=== PATIENT | male | born 2000 | race Hispanic/Latino ===

== ENCOUNTER 2022-02-20 22:53 | Inpatient (IN) | payer SELFPAY ==
[~2022-02-20 22:53] MED LIST: Iopamidol 370 76% 100 ML VIAL ONE
[2022-02-20 23:38] LABS: #Lymphocytes 2.2 thou/uL (1.20-3.40); #Monocytes 1.2 thou/uL (0.11-0.59); #Neutrophils 7.6 thou/uL (1.40-6.50); %Basophils 0.3 % (0.0-1.0); %Eosinophils 0.2 % (0.0-10.0); %Lymphocytes 19.6 % (21.0-51.0); %Monocytes 10.6 % (0.0-10.0); %Neutrophils 69.3 % (42.0-75.0); Hemoglobin 12.3 g/dL (14.0-18.0); Mean Corpuscular HGB CONC 34.4 g/dL (32.0-36.0); Mean Corpuscular Hemoglobin 30.9 pg (27.0-31.0); Mean Corpuscular Volume 89.8 fL (78.0-98.0); Mean Platelet Volume 6.8 fL (7.4-10.4); Platelet Count 343 thou/uL (130-400); RBC Distribution Width 12.1 % (11.5-14.5)
[2022-02-20 23:58] LABS: ALT (SGPT) 102 U/L (8-55); AST (SGOT) 45 U/L (5-34); Albumin 3.7 g/dL (3.5-5.0); Alkaline Phosphatase 67 U/L (40-110); Anion Gap 12 mmol/L (10-20); BUN (Urea Nitrogen) 10 mg/dL (8.9-20.6); Bilirubin, Total 0.8 mg/dL (0.2-1.2); Calc. Creatinine Clearance 0 mL/min (70-130); Calcium 8.9 mg/dL (7.8-10.44); Carbon Dioxide 24 mmol/L (22-29); Chloride 102 mmol/L (98-107); Globulin 4.4 g/dL (2.4-3.5); Glucose 112 mg/dL (70-105); Potassium 3.9 mmol/L (3.5-5.1); Protein, Total 8.1 g/dL (6.0-8.3); Sodium 134 mmol/L (136-145)
[2022-02-21] MEDS ORDERED: Enoxaparin Sodium 80 MG/0.8 ML SYRINGE ONE (01:32)
[2022-02-21 03:07] VITALS: BMI 25.9
[2022-02-21] MEDS ORDERED: Acetaminophen 325 MG TAB PO PRN (05:45)
[2022-02-21] MEDS ORDERED: Acetaminophen 650 MG Suppository PR PRN (05:45)
[2022-02-21] MEDS ORDERED: Ondansetron ODT 4 MG TAB PO PRN (05:45)
[2022-02-21] MEDS ORDERED: Ondansetron PF 4 MG/2 ML Vial IVP PRN (05:45)
[2022-02-21] MEDS ORDERED: Heparin 10,000 UNITS/ 10 ML VIAL SLOW IVP SCH (16:30)
[2022-02-21 16:37] LABS: Hemoglobin 11.9 g/dL (14.0-18.0); Platelet Count 306 thou/uL (130-400)
[2022-02-21] MEDS: Heparin 25,000 units/D5W 500 ML IVPB SCH (18:02)
[2022-02-21] MEDS ORDERED: Apixaban 5 MG TAB PO SCH (21:00)
[2022-02-22 01:33] LABS: INR-International Normal Ratio 1.2; Prothrombin Time 14.9 sec (12.0-14.7)
[2022-02-22 01:34] LABS: PTT 95.9 sec (22.9-36.1)
[2022-02-22 08:16] LABS: #Lymphocytes 2.8 thou/uL (1.20-3.40); #Monocytes 0.8 thou/uL (0.11-0.59); #Neutrophils 3.7 thou/uL (1.40-6.50); %Basophils 0.6 % (0.0-1.0); %Eosinophils 0.3 % (0.0-10.0); %Lymphocytes 37.7 % (21.0-51.0); %Monocytes 11.3 % (0.0-10.0); Hemoglobin 12.6 g/dL (14.0-18.0); Mean Corpuscular HGB CONC 33.6 g/dL (32.0-36.0); Mean Corpuscular Hemoglobin 30.7 pg (27.0-31.0); Mean Corpuscular Volume 91.4 fL (78.0-98.0); Mean Platelet Volume 7.1 fL (7.4-10.4); Platelet Count 316 thou/uL (130-400); RBC Distribution Width 12.3 % (11.5-14.5); Red Blood Cell (RBC) Count 4.09 mill/uL (4.70-6.10); White Blood Cell (WBC) Count 7.4 thou/uL (4.8-10.8)
[2022-02-22 08:34] LABS: Anion Gap 12 mmol/L (10-20); BUN (Urea Nitrogen) 7 mg/dL (8.9-20.6); Calc. Creatinine Clearance 179 mL/min (70-130); Calcium 9.6 mg/dL (7.8-10.44); Carbon Dioxide 26 mmol/L (22-29); Chloride 100 mmol/L (98-107); Glucose 93 mg/dL (70-105); Potassium 4.1 mmol/L (3.5-5.1); Sodium 134 mmol/L (136-145)
[2022-02-22 08:49] LABS: INR-International Normal Ratio 1.1; Prothrombin Time 14.1 sec (12.0-14.7)
[2022-02-22] MEDS: Heparin 25,000 units/D5W 500 ML IVPB SCH (09:46)
[2022-02-22] MEDS ORDERED: PROPOFOL 40 ML ONE (12:04)
[2022-02-22] MEDS ORDERED: Lidocaine 1% PF 5 ML VIAL ONE (12:09)
[2022-02-22] MEDS ORDERED: PROPOFOL 200 MG/20 ML VIAL ONE (12:09)
[2022-02-22 16:40] LABS: INR-International Normal Ratio 1.1; Prothrombin Time 13.8 sec (12.0-14.7)
[2022-02-22 16:41] LABS: D-Dimer Test 1.64 *mcg/mL (0.27-0.43); PTT 80.6 sec (22.9-36.1)
[2022-02-23] MEDS: Heparin 25,000 units/D5W 500 ML IVPB SCH (02:20)
[2022-02-23 05:55] LABS: Anion Gap 14 mmol/L (10-20); BUN (Urea Nitrogen) 9 mg/dL (8.9-20.6); Calc. Creatinine Clearance 168 mL/min (70-130); Calcium 8.8 mg/dL (7.8-10.44); Carbon Dioxide 26 mmol/L (22-29); Chloride 101 mmol/L (98-107); Glucose 92 mg/dL (70-105); Potassium 3.9 mmol/L (3.5-5.1); Sodium 137 mmol/L (136-145)
[2022-02-23 06:06] LABS: Band 1 % (5-11); Eosinophils 1 % (0-10); Lymphocytes 59 % (21-51); MDiff Complete? YES; Mean Corpuscular HGB CONC 33.1 g/dL (32.0-36.0); Mean Corpuscular Hemoglobin 30.3 pg (27.0-31.0); Mean Corpuscular Volume 91.5 fL (78.0-98.0); Mean Platelet Volume 6.4 fL (7.4-10.4); Monocytes 2 % (0-10); Neutrophil 37 % (42-75); Platelet Count 317 thou/uL (130-400); Platelet Morphology Comment Appears Adequate; RBC Distribution Width 12.2 % (11.5-14.5); RBC Morphology Normal; Red Blood Cell (RBC) Count 3.95 mill/uL (4.70-6.10); White Blood Cell (WBC) Count 5.3 thou/uL (4.8-10.8)
[2022-02-23] MEDS ORDERED: Communication Order-Pharmacy FS SCH (11:20)
[2022-02-23 11:43] LABS: Platelet Count 339 thou/uL (130-400)
[2022-02-23 18:51] LABS: Hemoglobin 12.7 g/dL (14.0-18.0); Platelet Count 346 thou/uL (130-400)
[2022-02-23] MEDS ORDERED: Heparin 10,000 UNITS/ 10 ML VIAL SLOW IVP SCH (20:30)
[2022-02-23] MEDS ORDERED: Heparin 25,000 units/D5W 500 ML IV SCH (20:30)
[2022-02-23] MEDS ORDERED: Apixaban 5 MG TAB PO SCH ×2 (21:00)
[2022-02-23] MEDS: Apixaban 5 MG TAB PO SCH (21:36)
[2022-02-24] MEDS: Apixaban 5 MG TAB PO SCH (09:59)
[2022-02-24 11:37] VITALS: BP 118/74; TEMP 97.7
[2022-02-25 10:53] LABS: Protein C Activity 88 % (78-152)
[2022-02-26 13:42] LABS: Cardiolipin IgA Ab 6.6 APL-U/mL (<14 Negative); Cardiolipin IgG Ab 3.2 GPL-U/mL (<10 Negative); EliA APS New Method **** NEW METHOD ****
[2022-03-02] MEDS ORDERED: Apixaban 5 MG TAB PO SCH ×2 (21:00)
== END 2022-02-24 15:00 | disposition home or self-care (01) | DRG 176 ==
LOC: ERS 22:53 → OBSVTOIN 02-21 01:18 → NEURO 02-21 01:18
PROVIDERS: ADMIT Student in an Organized Health Care Education/Training Program; ATTEND Internal Medicine
PROC: B24BZZ4 Ultrasonography of Heart with Aorta, Transesophageal (ICD-10-PCS; principal; 2022-02-22)
DX: I26.99 Other pulmonary embolism without acute cor pulmonale (principal); E87.1 Hypo-osmolality and hyponatremia; J90 Pleural effusion, not elsewhere classified; R74.01 Elevation of levels of liver transaminase levels; Z20.822 Contact with and (suspected) exposure to COVID-19; Z88.1 Allergy status to other antibiotic agents; Z79.899 Other long term (current) drug therapy
CPT/HCPCS: 36415; 71275; 76705; 80048; 80053; 83090; 85014; 85018; 85025; 85049; 85240; 85300; 85303; 85305; 85307; 85379; 85598; 85610; 85730; 86147; 93005; 93306; 93312; 93970; 96372; J1644; J1650; J2704; Q9967; U0003; U0005